=== PATIENT | male | born 1970 | race Caucasian/White ===

== ENCOUNTER → 2018-06-24 | Outpatient (CLI) | payer OTHER ==
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
--- NOTE | 2018-06-24 14:35 | KCIC ---
MR of the left hip Indication: Left hip pain. History of left labral repair. Technique: Standard multiplanar sequences are obtained. Findings: Artifact: No significant image degradation. Bones: No bone lesion, acute fracture or acute bone marrow edema. No femoral head osteonecrosis. Effusion: No significant effusion Joint: No advanced primary osteoarthritis. Labrum: No evidence of labral detachment or separation. Gluteus minimus tendon: Intact Gluteus medius tendon: Intact Hamstring tendon: Intact Iliopsoas tendon: Intact Rectus femoris tendon attachment:Intact Soft tissue:No significant acute findings. Coronal STIR survey sequence inclusive of both hips demonstrates no acute findings at the contralateral hip or elsewhere within the [id number] Impression: 1. No evidence of labral tear or detachment. 2. No acute findings. Electronically signed by: Jona Monroy MD (06/24/2018 2:32 PM) [email or web address]
== END | disposition home or self-care (01) ==
LOC: KCIC MRI 12:51
PROVIDERS: ATTEND Internal Medicine Cardiovascular Disease
DX: S32.018D Other fracture of first lumbar vertebra, subsequent encounter for fracture with routine healing (principal); M43.17 Spondylolisthesis, lumbosacral region; M51.37 Other intervertebral disc degeneration, lumbosacral region; K76.89 Other specified diseases of liver; M25.552 Pain in left hip; X58.XXXD Exposure to other specified factors, subsequent encounter
CPT/HCPCS: 72148; 73721

== ENCOUNTER → 2019-01-03 | Outpatient (CLI) | payer OTHER ==
[~2019-01-03] MED LIST: GADOBUTROL 10 MMOL/10 ML VIAL IV ONE; LISI-334 PO
--- NOTE | 2019-01-04 08:25 | KCIC ---
Indication: Fatty liver follow-up. TECHNIQUE: MRI of abdomen with multiplanar sequences without and with IV contrast. 10 mL of gadolinium based contrast was used. COMPARISON: None FINDINGS: Heart is normal in size. No pericardial or pleural effusion. Drop of signal is seen on out of phase imaging when compared to in phase imaging in the liver compatible with diffuse hepatic steatosis. The liver is not enlarged. There are scattered high intensity T2/low intensity T1 signal in the liver. Index lesions as follows: 1.1 x 1.0 cm lesion in segment 8 (series 6 image 6) demonstrating progressive contrast enhancement on delayed images compatible with hemangioma. lobulated well-circumscribed lesion in segment 7/6 junction measuring 3.5 x 2.9 cm (series 6 image 18) demonstrating peripheral discontinuous nodular enhancement with eventual filling on delayed images compatible with hemangioma. 1.9 x 1.5 cm segment 6 lesion demonstrating progressive filling on delayed images compatible with hemangioma. Spleen is within normal limits. No gallstones, pericholecystic fluid. Intrinsic T1 signal is preserved in the pancreas without focal pancreatic lesion. No intra or extrahepatic biliary duct dilation. Main pancreatic duct is nondilated. Adrenal glands demonstrate no nodularity. Left-sided Extrarenal pelvis. No hydronephrosis or suspicious renal lesion. No enlarged retroperitoneal adenopathy. No enhancing bone lesions. IMPRESSION: 1. Diffuse hepatic steatosis. 2. Multiple hepatic hemangiomas. Electronically signed by: Bart Webster DO (01/04/2019 8:22 AM) [id number]
== END | disposition home or self-care (01) ==
LOC: KCIC MRI 14:47
PROVIDERS: ATTEND Family Medicine
DX: K76.0 Fatty (change of) liver, not elsewhere classified (principal); D18.03 Hemangioma of intra-abdominal structures; I10 Essential (primary) hypertension
CPT/HCPCS: 74183; A9585